=== PATIENT | female | born 1990 | race African-American/Black ===

== ENCOUNTER 2016-07-10 09:14 | Emergency (ER) | payer OTHER ==
[~2016-07-10] VITALS: Ht 157.5 cm; Wt 74.0 kg
[2016-07-10] MEDS ORDERED: SODIUM CHLORIDE 0.9% 1,000 ML IV ONE (11:22)
[2016-07-10] MEDS ORDERED: ACETAMINOPHEN 325MG TABLET PO STA (11:22)
[2016-07-10 11:54] LABS: CLARITY URINE CLOUDY (CLEAR); COLOR URINE YELLOW (YELLOW); GLUCOSE URINE NEGATIVE (NEGATIVE); KETONES URINE TRACE (NEGATIVE); LEUKOCYTE ESTERASE URINE 2+ (NEGATIVE); NITRITE URINE NEGATIVE (NEGATIVE); OCCULT BLOOD URINE NEGATIVE (NEGATIVE); PH URINE 8.5 (4.5-8.0); PROTEIN URINE TRACE (NEGATIVE); SPECIFIC GRAVITY URINE 1.026 (1.005-1.030)
[2016-07-10 11:56] LABS: BASOPHILS % 0.3 % (0.0-2.0); EOSINOPHILS % 0.9 % (0.0-5.0); HEMATOCRIT. 37.6 % (36.0-48.0); HEMOGLOBIN. 12.8 g/dL (12.0-16.0); LYMPHOCYTES % 24.8 % (20.0-50.0); MEAN CORPUSCULAR HEMOGLOBIN 31.8 pg (28.0-32.0); MEAN CORPUSCULAR HGB CONC 34.1 g/dL (31.0-37.0); MEAN CORPUSCULAR VOLUME 93.3 fL (81.0-99.0); MEAN PLATELET VOLUME 9.8 fl (7.4-10.4); MONOCYTES % 4.9 % (2.0-8.0); NEUTROPHILS % 69.1 % (40.0-76.0); PLATELET 208 x1000/uL (130-400); RED BLOOD CELL COUNT 4.03 mill/uL (4.2-5.4)
[2016-07-10 12:02] LABS: PROTHROMBIN TIME 10.7 sec
[2016-07-10 12:06] LABS: CHLORIDE 105 mEq/L (98-107); INDEX HEMOLYSI 1 (1-3); INDEX ICTERIC 1 (1-4); INDEX LIPEMIC 1 (1-3)
[2016-07-10 12:15] LABS: ALANINE AMINOTRANSFERASE 18 IU/L (13-61); ANION GAP 13; CALCIUM 9.1 mg/dL (8.5-10.1); CARBON DIOXIDE 24 mEq/L (21-32); LIPASE 99 IU/L (73-393); eGFR > 60 mL/min (>60)
[2016-07-10 12:20] LABS: UREA NITROGEN BLOOD 4 mg/dL (7-21)
[2016-07-10 12:35] LABS: B-HCG QUANTITATIVE 45046 mIU/mL (<3)
[2016-07-10 12:59] LABS: BACTERIA URINE 2+; RBC URINE 0-2 /hpf (0-2); SQUAMOUS EPITHELIAL CELL URINE 3+ /lpf (RARE/1+)
[2016-07-10 13:00] LABS: MUCUS URINE 1+ /lpf (< = 2+)
[2016-07-10 13:29] VITALS: BP 102/55
== END 2016-07-10 14:15 | disposition home or self-care (01) ==
LOC: ER 09:17
DX: O23.41 Unspecified infection of urinary tract in pregnancy, first trimester (principal); Z3A.01 Less than 8 weeks gestation of pregnancy
CPT/HCPCS: 36415; 76801; 76817; 76857; 80053; 81001; 81025; 83690; 84702; 85025; 85610; 86850; 86900; 86901; 96360; 96361; 99285; J7030; Z7610

== ENCOUNTER 2016-07-13 12:39 | Emergency (ER) | payer OTHER | END 2016-07-13 15:43 | disposition left against medical advice (07) | LOC: ER 14:15 | DX: Z53.21 Procedure and treatment not carried out due to patient leaving prior to being seen by health care provider (principal) ==

== ENCOUNTER 2016-07-16 12:55 | Emergency (ER) | payer OTHER ==
[~2016-07-16] VITALS: Ht 157.5 cm; Wt 71.0 kg
[2016-07-16 13:33] VITALS: BP 111/55
[2016-07-16] MEDS ORDERED: ONDANSETRON 4MG ODT PO ONE (14:15)
[2016-07-16] MEDS ORDERED: ACETAMINOPHEN 325MG TABLET PO ONE (14:15)
[2016-07-16 14:31] LABS: BASOPHILS % 0.4 % (0.0-2.0); EOSINOPHILS % 0.6 % (0.0-5.0); HEMATOCRIT. 37.9 % (36.0-48.0); HEMOGLOBIN. 12.7 g/dL (12.0-16.0); LYMPHOCYTES % 23.1 % (20.0-50.0); MEAN CORPUSCULAR HEMOGLOBIN 31.7 pg (28.0-32.0); MEAN CORPUSCULAR HGB CONC 33.6 g/dL (31.0-37.0); MEAN CORPUSCULAR VOLUME 94.2 fL (81.0-99.0); MEAN PLATELET VOLUME 10.3 fl (7.4-10.4); MONOCYTES % 4.8 % (2.0-8.0); NEUTROPHILS % 71.1 % (40.0-76.0); PLATELET 202 x1000/uL (130-400); RED BLOOD CELL COUNT 4.02 mill/uL (4.2-5.4); RED CELL DISTRIBUTION WIDTH 14.2 % (11.6-14.6); WHITE BLOOD COUNT 9.7 x1000/uL (4.5-11.0)
[2016-07-16 14:40] LABS: CLARITY URINE CLOUDY (CLEAR); COLOR URINE YELLOW (YELLOW); GLUCOSE URINE NEGATIVE (NEGATIVE); KETONES URINE NEGATIVE (NEGATIVE); LEUKOCYTE ESTERASE URINE 1+ (NEGATIVE); NITRITE URINE NEGATIVE (NEGATIVE); OCCULT BLOOD URINE NEGATIVE (NEGATIVE); PH URINE 7.5 (4.5-8.0); PROTEIN URINE NEGATIVE (NEGATIVE)
[2016-07-16 14:43] LABS: ANION GAP 12; CALCIUM 8.9 mg/dL (8.5-10.1); CARBON DIOXIDE 25 mEq/L (21-32); CHLORIDE 105 mEq/L (98-107); INDEX HEMOLYSI 1 (1-3); INDEX ICTERIC 1 (1-4); INDEX LIPEMIC 1 (1-3); UREA NITROGEN BLOOD 4 mg/dL (7-21); eGFR > 60 mL/min (>60)
[2016-07-16 14:57] LABS: *AMPHETAMINES SCREEN URINE NEGATIVE (NEGATIVE); *BARBITURATES SCREEN URINE NEGATIVE (NEGATIVE); *BENZODIAZEPINES SCREEN URINE NEGATIVE (NEGATIVE); *COCAINE SCREEN URINE NEGATIVE (NEGATIVE); ECSTASY MDMA SCREEN URINE NEGATIVE (NEGATIVE); METHADONE URINE SCREEN NEGATIVE (NEGATIVE); OPIATES URINE SCREEN NEGATIVE (NEGATIVE); PHENCYCLIDINE URINE SCREEN NEGATIVE (NEGATIVE)
[2016-07-16 14:58] LABS: CANNABINOID URINE SCREEN PRESUMTIVE POSITIVE (NEGATIVE)
[2016-07-16 14:59] LABS: B-HCG QUANTITATIVE 91988 mIU/mL (<3)
[2016-07-16 15:05] LABS: BACTERIA URINE 1+; RBC URINE 0-2 /hpf (0-2); SQUAMOUS EPITHELIAL CELL URINE FEW /lpf (RARE/1+)
== END 2016-07-16 16:02 | disposition left against medical advice (07) ==
LOC: ER 15:22
DX: O26.891 Other specified pregnancy related conditions, first trimester (principal); O21.9 Vomiting of pregnancy, unspecified; Z3A.01 Less than 8 weeks gestation of pregnancy; R11.2 Nausea with vomiting, unspecified; R10.9 Unspecified abdominal pain
CPT/HCPCS: 36415; 76801; 76817; 80048; 80305; 81001; 84702; 85025; 86850; 86900; 86901; 99285; Q0162

== ENCOUNTER 2016-08-09 14:35 | Emergency (ER) | payer MEDICAID, OTHER ==
[~2016-08-09] VITALS: Ht 160 cm; Wt 72.0 kg
[2016-08-09 15:01] VITALS: BP 124/57
== END 2016-08-09 22:40 | disposition left against medical advice (07) ==
LOC: ER 14:35
DX: O26.891 Other specified pregnancy related conditions, first trimester (principal); R10.9 Unspecified abdominal pain; F41.0 Panic disorder [episodic paroxysmal anxiety]; Z3A.11 11 weeks gestation of pregnancy

== ENCOUNTER 2017-10-06 23:52 | Emergency (ER) | payer MEDICAID ==
[~2017-10-06] VITALS: Ht 160 cm; Wt 69.0 kg
[~2017-10-06 23:52] MED LIST: PNV1TABL76 MT
[2017-10-07 00:02] VITALS: BP 116/63
== END 2017-10-07 01:00 | disposition left against medical advice (07) ==
LOC: ER 23:52
DX: S41.152A Open bite of left upper arm, initial encounter (principal); W50.3XXA Accidental bite by another person, initial encounter; Y93.89 Activity, other specified; Y92.89 Other specified places as the place of occurrence of the external cause; Y99.8 Other external cause status; Z53.21 Procedure and treatment not carried out due to patient leaving prior to being seen by health care provider

== ENCOUNTER 2019-11-27 07:10 | Emergency (ER) | payer MEDICAID ==
[~2019-11-27] VITALS: Ht 157.5 cm; Wt 72.0 kg
[2019-11-27] MEDS ORDERED: MORPHINE SULFATE 4 MG/ML CPJ (NOT FOR IM USE) IV ONE (08:00)
[2019-11-27 08:54] LABS: BASOPHILS % 0.6 % (0.0-2.0); EOSINOPHILS % 0.5 % (0.0-5.0); HEMATOCRIT. 36.2 % (36.0-48.0); HEMOGLOBIN. 11.7 g/dL (12.0-16.0); LYMPHOCYTES % 7.6 % (20.0-50.0); MEAN CORPUSCULAR HEMOGLOBIN 28.6 pg (28.0-32.0); MEAN CORPUSCULAR VOLUME 88.2 fL (81.0-99.0); MEAN PLATELET VOLUME 9.7 fl (7.4-10.4); MONOCYTES % 3.4 % (2.0-8.0); NEUTROPHILS % 87.9 % (40.0-76.0); PLATELET 237 x1000/uL (130-400); RED BLOOD CELL COUNT 4.11 mill/uL (4.2-5.4); RED CELL DISTRIBUTION WIDTH 18.5 % (11.6-14.6)
[2019-11-27 09:05] LABS: CHLORIDE 109 mEq/L (98-107)
[2019-11-27] MEDS ORDERED: AMOXICILLIN/POTASSIUM CLAVULANATE 875/125MG TAB PO ONE (10:45)
[2019-11-27] MEDS ORDERED: OXYCODONE HCL/ACETAMINOPHEN 5/325MG TABLET PO ONE (10:45)
[2019-11-27 10:58] VITALS: BP 103/58
== END 2019-11-27 10:59 | disposition home or self-care (01) ==
LOC: ER 07:10
DX: K04.7 Periapical abscess without sinus (principal)
CPT/HCPCS: 36415; 70491; 80053; 81025; 85025; 96374; 99284; J2270

== ENCOUNTER 2023-07-09 10:58 | Emergency (ER) | payer MEDICAID, OTHER ==
[~2023-07-09] VITALS: Ht 160 cm; Wt 78.0 kg
[2023-07-09 11:08] VITALS: O2SAT 100
[2023-07-09] MEDS ORDERED: ACETAMINOPHEN 325MG TABLET PO ONE (11:45)
[2023-07-09] MEDS ORDERED: OFLO5DRO4 LEFT EAR (11:48)
[2023-07-09 12:28] VITALS: BP 113/67; PULSE 78; RESP 16
[2023-07-09] MEDS: KETOROLAC 15MG/ML VIAL IM ONE (12:28)
== END 2023-07-09 13:00 | disposition home or self-care (01) ==
LOC: ER 10:58
DX: H72.90 Unspecified perforation of tympanic membrane, unspecified ear (principal); Z98.890 Other specified postprocedural states
CPT/HCPCS: 81025; 96372; 99283; J1885